=== PATIENT | male | born 1990 | race African-American/Black ===

== ENCOUNTER 2024-02-10 18:50 | Emergency (ER) | payer BC ==
[2024-02-10] MEDS: Dexamethasone 4 MG/ML SDV PO ONE (19:41)
== END 2024-02-10 19:51 | disposition home or self-care (01) ==
LOC: MW.ED 18:50
DX: J02.9 Acute pharyngitis, unspecified (principal); F17.210 Nicotine dependence, cigarettes, uncomplicated; Z75.8 Other problems related to medical facilities and other health care
CPT/HCPCS: 99282; J8540; 99283; J1100